=== PATIENT | female | born 1965 | race Caucasian/White ===

== ENCOUNTER → 2017-04-16 | Outpatient (CLI) | payer BC ==
[~2017-04-16] MED LIST: DIAZ2 PO; ERGO50000 PO; EZET10 PO; HYDCHL25 PO; HYDMOR2 PO; MINIVELLE1 EAC1 TD; ONDA8 PO; ROSU10TA PO
[2017-04-18 13:01] LABS: HPV Genotype 16 Not Detected (NOTDET); HPV Genotype 18 Not Detected (NOTDET)
[2017-04-20 14:10] LABS: HPV High Risk Other Not Detected (NOTDET)
== END | disposition home or self-care (01) ==
LOC: LAB 13:57
PROVIDERS: Obstetrics & Gynecology Gynecology
DX: Z12.72 Encounter for screening for malignant neoplasm of vagina (principal)
CPT/HCPCS: 87624; G0123

== ENCOUNTER → 2018-04-22 | Outpatient (CLI) | payer BC ==
[2018-04-22 17:56] LABS: Source, Urine Catheter
[2018-04-22 18:38] LABS: Bilirubin, Urine Neg (Neg); Blood, Urine 1+ (Neg); Glucose Qualitative, Urine Neg (Neg); Ketones, Urine Neg (Neg); Leukocyte Esterase, Urine Neg (Neg); Nitrite, Urine Neg (Neg); Protein, Urine Neg (Neg); Specific Gravity, Urine 1.005 (1.003-1.022); Urobilinogen, Urine NORM (Normal)
[2018-04-22 18:51] LABS: Appearance, Urine Clear (Clear); Color, Urine Yellow (P-Yellow)
[2018-04-22 18:52] LABS: Bacteria Few /hpf; Squamous Epithelial Cells Few /hpf (Few)
[2018-04-24 14:12] LABS: HPV 16 Negative (Negative); HPV 18 Negative (Negative); HPV OTHER HR TYPES Negative (Negative)
== END | disposition home or self-care (01) ==
LOC: LAB 17:52 → LAB SHORT 17:52
PROVIDERS: Obstetrics & Gynecology Gynecology
DX: Z12.72 Encounter for screening for malignant neoplasm of vagina (principal); R31.9 Hematuria, unspecified
CPT/HCPCS: 81001; 87624; G0123

== ENCOUNTER 2021-07-06 09:52 | Emergency (ER) | payer BC ==
[~2021-07-06] VITALS: Ht 157.5 cm; Wt 63.5 kg
[2021-07-06 10:24] LABS: BASOPHILS ABSOLUTE AUTO 0.02 K/mm3 (0.00-0.23); BASOPHILS PERCENT AUTO 0 % (0-2); EOSINOPHILS ABSOLUTE AUTO 0.04 K/mm3 (0.00-0.68); EOSINOPHILS PERCENT AUTO 0 % (0-6); Hematocrit 43.8 % (33.0-51.0); Hemoglobin 14.1 g/dL (11.5-16.0); IMMATURE GRAN ABSOLUTE AUTO 0.02 K/mm3 (0.00-0.10); IMMATURE GRAN PERCENT AUTO 0 % (0-1); LYMPHOCYTES PERCENT AUTO 8 % (21-46); MONOCYTES ABSOLUTE AUTO 0.69 K/mm3 (0.16-1.47); MONOCYTES PERCENT AUTO 6 % (4-13); Mean Corpuscular HGB 32.1 pg (26.0-34.0); Mean Corpuscular HGB Conc 32.2 g/dL (31.5-36.5); Mean Corpuscular Volume 100 fL (80-100); Mean Platelet Volume 10.4 fL (9.1-12.4); NEUTROPHILS PERCENT AUTO 85 % (41-73); Platelet Count 196 K/mm3 (150-400); RDW Coefficient Variation 12.2 % (11.7-14.2); RDW Standard Deviation 45.1 fL (35.1-46.3); Red Blood Cell Count 4.39 M/mm3 (3.80-5.20); White Blood Cell Count 11.07 K/mm3 (4.00-11.30)
[2021-07-06 10:35] LABS: Source, Urine Clean Catch
[2021-07-06 10:45] LABS: Alanine Aminotransfer (ALT/SGP 27 U/L (12-78); Albumin/Globulin Ratio 1.1 (0.8-1.8); Alk Phos 70 U/L (50-136); Anion Gap 5 mmol/L (6-16); Aspartate Aminotrans (AST/SGOT 20 U/L (12-37); Blood Urea Nitrogen 11 mg/dL (8-24); Bun/Creatinine Ratio 18.9 (12.0-20.0); CO2, Blood 29 mmol/L (21-32); Calcium, Blood 9.1 mg/dL (8.5-10.1); Chloride, Blood 105 mmol/L (98-108); Creatinine, Blood 0.58 mg/dL (0.40-1.00); Globulin, Blood 3.6 g/dL (2.2-4.0); Glomerular Filtration Rate >60 (60-); Glucose, Blood 102 mg/dL (70-99); Potassium, Blood 4.2 mmol/L (3.5-5.5); Sodium, Blood 139 mmol/L (136-145); Total Protein, Blood 7.6 g/dL (6.4-8.2)
[2021-07-06 10:48] LABS: Appearance, Urine Clear (Clear); Bilirubin, Urine Neg (Neg); Blood, Urine 2+ (Neg); Color, Urine Yellow (P-Yellow); Glucose Qualitative, Urine Neg (Neg); Ketones, Urine Neg (Neg); Leukocyte Esterase, Urine Neg (Neg); Nitrite, Urine Neg (Neg); Protein, Urine Neg (Neg); Specific Gravity, Urine 1.025 (1.003-1.022); Urobilinogen, Urine NORM (Normal)
[2021-07-06 12:39] LABS: Bacteria Few /hpf; Red Blood Cells, Urine 0-2 /hpf (0-2); Squamous Epithelial Cells Few /hpf (Few); White Blood Cells, Urine 0-2 /hpf (0-5)
[2021-07-06] MEDS ORDERED: AMOCLA875 PO (12:49)
== END 2021-07-06 13:00 | disposition home or self-care (01) ==
LOC: ER 09:52
PROVIDERS: Physician Assistant
DX: K57.32 Diverticulitis of large intestine without perforation or abscess without bleeding (principal); Z88.0 Allergy status to penicillin; Z88.8 Allergy status to other drugs, medicaments and biological substances; Z79.899 Other long term (current) drug therapy
CPT/HCPCS: 36415; 74177; 80053; 81001; 83690; 85025; 99284-25; A9270; Q9967

== ENCOUNTER 2022-01-31 10:21 | Emergency (ER) | payer BC ==
[~2022-01-31] VITALS: Ht 157.5 cm; Wt 65.8 kg
[~2022-01-31 10:21] MED LIST changes: +AMOCLA875 PO
[2022-01-31 11:08] LABS: BASOPHILS ABSOLUTE AUTO 0.02 K/mm3 (0.00-0.23); BASOPHILS PERCENT AUTO 0 % (0-2); EOSINOPHILS ABSOLUTE AUTO 0.01 K/mm3 (0.00-0.68); EOSINOPHILS PERCENT AUTO 0 % (0-6); Hematocrit 45.9 % (33.0-51.0); Hemoglobin 14.8 g/dL (11.5-16.0); IMMATURE GRAN ABSOLUTE AUTO 0.01 K/mm3 (0.00-0.10); IMMATURE GRAN PERCENT AUTO 0 % (0-1); LYMPHOCYTES ABSOLUTE AUTO 1.22 K/mm3 (0.84-5.20); LYMPHOCYTES PERCENT AUTO 24 % (21-46); MONOCYTES ABSOLUTE AUTO 0.34 K/mm3 (0.16-1.47); MONOCYTES PERCENT AUTO 7 % (4-13); Mean Corpuscular HGB 32.5 pg (26.0-34.0); Mean Corpuscular HGB Conc 32.2 g/dL (31.5-36.5); Mean Corpuscular Volume 101 fL (80-100); NEUTROPHILS ABSOLUTE AUTO 3.53 K/mm3 (1.96-9.15); NEUTROPHILS PERCENT AUTO 69 % (41-73); Platelet Count 218 K/mm3 (150-400); RDW Coefficient Variation 13.5 % (11.7-14.2); RDW Standard Deviation 50.2 fL (35.1-46.3); Red Blood Cell Count 4.56 M/mm3 (3.80-5.20); White Blood Cell Count 5.13 K/mm3 (4.00-11.30)
[2022-01-31 11:21] LABS: Albumin/Globulin Ratio 1.1 (0.8-1.8); Bilirubin, Total 1.3 mg/dL (0.1-1.0); Bun/Creatinine Ratio 22.2 (12.0-20.0); Calcium, Blood 9.5 mg/dL (8.5-10.1); Creatinine, Blood 0.63 mg/dL (0.40-1.00); Globulin, Blood 3.7 g/dL (2.2-4.0); Potassium, Blood 3.9 mmol/L (3.5-5.5); Total Protein, Blood 7.7 g/dL (6.4-8.2)
[2022-01-31] MEDS ORDERED: PRALUENT P75 MG/1 ML SC (11:43)
[2022-01-31 11:50] LABS: Source, Urine Clean Catch
[2022-01-31 11:57] LABS: Bilirubin, Urine Neg (Neg); Blood, Urine 2+ (Neg); Glucose Qualitative, Urine Neg (Neg); Ketones, Urine Neg (Neg); Leukocyte Esterase, Urine Neg (Neg); Nitrite, Urine Neg (Neg); Protein, Urine Neg (Neg); Urobilinogen, Urine NORM (Normal)
[2022-01-31 12:09] LABS: Appearance, Urine Clear (Clear); Bacteria Not Seen /hpf; Color, Urine Yellow (P-Yellow); Squamous Epithelial Cells Rare /hpf (Few); White Blood Cells, Urine Not Seen /hpf (0-5)
== END 2022-01-31 14:01 | disposition home or self-care (01) ==
LOC: ER 10:21
PROVIDERS: Physician Assistant
DX: R10.12 Left upper quadrant pain (principal); Z88.6 Allergy status to analgesic agent; Z88.1 Allergy status to other antibiotic agents; Z88.5 Allergy status to narcotic agent; Z79.899 Other long term (current) drug therapy
CPT/HCPCS: 71045; 80053; 81001; 85025; A9270

== ENCOUNTER 2022-03-14 12:34 | Day surgery (SDC) | payer BC ==
[~2022-03-14] VITALS: Ht 157.5 cm; Wt 64.1 kg
[~2022-03-14 12:34] MED LIST changes: +PRALUENT P75 MG/1 ML SC
== END 2022-03-14 15:51 | disposition home or self-care (01) ==
LOC: ORSCSDS 12:34
PROVIDERS: Student in an Organized Health Care Education/Training Program
PROC: 0DBH8ZX Excision of Cecum, Via Natural or Artificial Opening Endoscopic, Diagnostic (ICD-10-PCS; principal; 2022-03-14 13:45)
PROC: 0DBN8ZX Excision of Sigmoid Colon, Via Natural or Artificial Opening Endoscopic, Diagnostic (ICD-10-PCS; principal; 2022-03-14 13:45)
DX: K57.30 Diverticulosis of large intestine without perforation or abscess without bleeding (principal); D12.0 Benign neoplasm of cecum; E78.5 Hyperlipidemia, unspecified; K63.5 Polyp of colon; Z79.899 Other long term (current) drug therapy
CPT/HCPCS: 82947; J0330; J0461; J2405; J2704; J7120; Q9968

== ENCOUNTER 2022-07-16 11:19 | Day surgery (SDC) | payer BC ==
[~2022-07-16] VITALS: Ht 157.5 cm; Wt 69.3 kg
[2022-07-16] MEDS ORDERED: HYDCHL25 PO (11:59)
--- NOTE | 2022-07-16 13:02 | NUR ---
07/16/22 1302 Sierra Bran AFTER FURTHER DISCUSSION WITH DR. SHAW, PT DECIDED AGAINST TODAY'S PROCEDURE. IV DC'D AND PT LEFT WITH TO GO HOME.
== END 2022-07-16 13:00 | disposition home or self-care (01) ==
LOC: ORSCSDS 11:19
DX: N83.291 Other ovarian cyst, right side (principal); Z53.9 Procedure and treatment not carried out, unspecified reason
CPT/HCPCS: J0171; J2250; J2704; J2795; J3010; J7120

== ENCOUNTER 2022-08-26 10:11 | Day surgery (SDC) | payer BC ==
[2022-08-26] VITALS (12 sets, daily range): BP systolic 86–119; BP diastolic 45–74
[~2022-08-26] VITALS: Ht 159 cm; Wt 69.8 kg
[~2022-08-26 10:11] MED LIST changes: +MINIVELLE TOP; -MINIVELLE1 EAC1 TD
[2022-08-26] MEDS ORDERED: DICLOFENAC SOD100 G1 TOP (10:32)
[2022-08-26] MEDS ORDERED: IBUP800 PO (10:33)
[2022-08-26] MEDS ORDERED: ERGO50000 PO (10:34)
[2022-08-26] MEDS ORDERED: OXYC5 PO (10:34)
[2022-08-26] MEDS ORDERED: MELATONIN5 M1 PO (10:35)
[2022-08-26] MEDS ORDERED: COQ-10100 MG PO (10:35)
[2022-08-26] MEDS ORDERED: Ginger250 MG PO (10:36)
[2022-08-26] MEDS ORDERED: METAMUCIL POWD798 GM PO (10:37)
--- NOTE | 2022-08-26 11:58 | NUR ---
MEDICATION AND ALLERGIES UPDATED WITH PATIENT IN CONSULT ROOM WHILE WAITING TO ADMIT TO DAY SURGERY. PATIENT DENIES ALLERGY TO PENICILLIN. PENICILLIN REMOVED FROM ALLERGY LIST.
--- NOTE | 2022-08-26 14:19 | NUR ---
REPORT GIVEN TO LAURA VELAZQUEZ.
--- NOTE | 2022-08-26 14:52 | NUR ---
PT BELONGINGS PLACED UNDERNEATH GURTRINIDAD FOR SAFEKEEPING.
--- NOTE | 2022-08-26 17:36 | NUR ---
Patient up to Ambulate independently. Gait steady. Discharge instructions reviewed with patient. Patient verbalizes understanding. Copy given to patient to take home. Patient States Post-Procedure ride home has been arranged. Discharged via wheelchair to private car for ride home.
== END 2022-08-27 23:02 | disposition home or self-care (01) ==
LOC: ORSCMMR 10:11 → ORD 11:30 → ORSCMMR 11:30
PROVIDERS: Obstetrics & Gynecology
PROC: 0UT04ZZ Resection of Right Ovary, Percutaneous Endoscopic Approach (ICD-10-PCS; principal; 2022-08-26 11:30)
DX: D27.0 Benign neoplasm of right ovary (principal); Z79.899 Other long term (current) drug therapy; D68.51 Activated protein C resistance
CPT/HCPCS: 88108; 88305; A9270; J1100; J1885; J2250; J2370; J2405; J2704; J2795; J3010; J7120

== ENCOUNTER 2023-12-11 09:57 | Day surgery (SDC) | payer BC ==
[~2023-12-11] VITALS: Ht 157.5 cm; Wt 70.8 kg
[~2023-12-11 09:57] MED LIST changes: +COQ-10100 MG PO; +DICLOFENAC SOD100 G1 TOP; +Ginger250 MG PO; +IBUP800 PO; +Lactated Ringer's 1,000 ML IV ONE; +Lidocaine 1%-Epineph 1:100000 20 ML MDV ONE; +MELATONIN5 M1 PO; +METAMUCIL POWD798 GM PO; +OXYC5 PO; +Sodium Bicarb 8.4% 1 MEQ/ML 50 ML Vial ONE
[2023-12-11] MEDS ORDERED: Lactated Ringer's 1,000 ML IV ONE (10:24)
--- NOTE | 2023-12-11 10:25 | NUR ---
12/11/23 1025 Bj Helm CALL LIGHT WITHIN REACH
[2023-12-11] MEDS ORDERED: Midazolam HCl 1MG / ML 2ML Vial ONE (10:50)
[2023-12-11] MEDS ORDERED: FentaNYL Citrate 50 MCG/ML 2 ML Injection ONE (10:51)
[2023-12-11] MEDS ORDERED: Lidocaine HCl 1% 20 ML MDV INJ ONE (11:08)
[2023-12-11 11:18] VITALS: BP 107/68
--- NOTE | 2023-12-11 11:46 | NUR ---
12/11/23 1146 TREVOR DICKERSON PT IN FOR DC INSTRUCTIONS
== END 2023-12-11 11:46 | disposition home or self-care (01) ==
LOC: ORSCSDS 09:57
PROVIDERS: Orthopaedic Surgery
PROC: 0RBX0ZZ Excision of Left Finger Phalangeal Joint, Open Approach (ICD-10-PCS; principal; 2023-12-11 11:00)
DX: R22.32 Localized swelling, mass and lump, left upper limb (principal); M67.442 Ganglion, left hand; D68.51 Activated protein C resistance; E78.01 Familial hypercholesterolemia; Z79.899 Other long term (current) drug therapy
CPT/HCPCS: 88304; 88305; J2250; J3010; J7120